=== PATIENT | male | born 1950 | race Caucasian/White ===

== ENCOUNTER 2022-03-06 01:44 | Day surgery (SDC) | payer BC, SELFPAY ==
[2022-03-03 14:46] VITALS: BMI 29.9
--- NOTE | 2022-03-06 08:30 | ECG_ITS ---
Measurements Intervals [place] Rate: 45 P: AL: 0 QRS: -25 QRSD: 81 T: 53 QT: 456 QTc: 398 Interpretive Statements ATRIAL FLUTTER WITH SLOW VENTRICULAR RESPONSE DELAYED PRECORDIAL R/S TRANSITION ABNORMAL ECG NO PREVIOUS ECG AVAILABLE FOR COMPARISON Electronically Signed On 03-06-2022 8:39:56 SPIRAL RUNNER by Armando Corea D.O.
[2022-03-06 08:40] VITALS: BP 152/55; PULSE 56; RESP 13; TEMP 36.9; O2SAT 100; BMI 29.9
[2022-03-06 09:15] LABS: Anion Gap 6 mmol/L (8-16); Blood Urea Nitrogen 25 mg/dL (9-20); Carbon Dioxide 26 mmol/L (22-30); Chloride 103 mmol/L (98-107); Estimated CRCL calculation 63 ml/min; Estimated Glomerular Filt Rate > 60; Glucose 102 mg/dL (65-110); Magnesium 1.9 mg/dL (1.6-2.3); Potassium 3.9 mmol/L (3.4-5.0); Sodium 135 mmol/L (137-145)
--- NOTE | 2022-03-06 10:00 | ECG_ITS ---
Measurements Intervals [place] Rate: 59 P: -18 SC: 214 QRS: -34 QRSD: 88 T: 39 QT: 429 QTc: 426 Interpretive Statements SINUS BRADYCARDIA WITH FIRST DEGREE AV BLOCK LEFT AXIS DEVIATION DELAYED PRECORDIAL R/S TRANSITION BORDERLINE ECG COMPARED TO ECG 03/06/2022 08:36:20 SINUS BRADYCARDIA NOW PRESENT FIRST DEGREE AV BLOCK NOW PRESENT LEFT-AXIS DEVIATION NOW PRESENT Electronically Signed On 03-06-2022 10:30:31 CONSUMER LOAN MANAGER by Armando Corea D.O.
--- NOTE | 2022-03-06 10:01 | WPDMODSED ---
Moderate Sedation Note-Pt Data Patient Data Diagnosis: Persistent atrial flutter chronicity unknown Previous mitral valve repair Present Complaint: No complaints this morning Procedure to be performed/Plan: DC cardioversion Allergies Allergy/AdvReac Type Severity Reaction Status Date / Time No Known Allergies Allergy Verified 03/03/22 15:19 Home Medications Medication Instructions Recorded Confirmed Type atorvastatin 40 mg tablet 40 mg PO DAILY 12/07/20 03/03/22 History kozhqtmflc-fyooaxeajicms-ljmpnqxr 1 cap PO Q4-6H PRN Headache 12/07/20 03/03/22 History 50 mg-300 mg-40 mg capsule (Fioricet) finasteride 5 mg tablet 5 mg PO DAILY 12/07/20 03/03/22 History furosemide 20 mg tablet 20 mg PO QAM 12/07/20 03/03/22 History galcanezumab-gnlm 120 mg/mL 120 mg subcut MONTHLY 12/07/20 03/03/22 History subcutaneous syringe (Emgality) pantoprazole 40 mg tablet,delayed 40 mg PO QAM 12/07/20 03/03/22 History release potassium chloride 10 mEq 10 meq PO DAILY 12/07/20 03/03/22 History capsule,extended release terazosin 10 mg capsule 10 mg PO DAILY 12/07/20 03/03/22 History rivaroxaban 20 mg tablet (Xarelto) 20 mg PO QHS 03/06/22 03/06/22 History Current Medications: Active Medications Sodium Chloride (Normal Saline Iv) 1,000 mls @ 30 mls/hr IV CONT .Q24H SPRING Sedation/Anesthesia: No previous sedation/anesthesia problems (including family history). [facility] Past Medical History Medical History (Updated 11/16/21 @ 08:59 by Rocio Lopez MA) History of broken nose History of pancreatitis History of stress test (~2007) Hyperlipidemia Hypertension Surgical History Surgical History History of carpal tunnel surgery (~1997) History of cervical spinal surgery (~1992) Discectomy History of hernia repair (~2007) History of laminectomy History of mitral valve repair (~2015) History of repair of rotator cuff (~2016) History of rotator cuff surgery History of sinus surgery (~1964) Cartilage Replaced Family History Family History Father Carcinoma of colon Mother Emphysema lung Social History Social History Smoking status: Former smoker Tobacco type: cigarettes Second hand tobacco smoke exposure: No Smoking end date: 02/19/79 Alcohol intake: current Drinks per week: 2 Alcohol use details: 1/week Substance use: former Substance use type: does not use Living arrangements: with family Spiritual care concerns: No Mod Sed Physical Exam Physical Exam Pre Procedural Exam: Normal: Appearance, Nose, Neck, Throat, Airway, Lungs, Heart Size, Neuro Exam and Extremities and Variation: Heart Rate (Bradycardia) and Heart Rhythm (Irregular) Hours since solid foods: 12 Hours since liquid intake: 12 Mallampati Classification: class II Internal Medicine - PN: Obj Da Vital Signs Vital Signs: Vital Signs - 24 hr 03/06/22 08:40 Temperature 36.9 C Pulse Rate 56 L Respiratory Rate 13 Blood Pressure 152/55 H Pulse Oximetry 100 Oxygen Delivery Room Air Meds/Results Medications: Active Medications Generic Name Dose Route Start Last Admin Trade Name Freq PRN Reason Stop Dose Admin Sodium Chloride 1,000 mls @ 30 mls/hr 03/06/22 08:30 Normal Saline Iv IV CONT .Q24H SPRING Labs 03/06/22 08:42 Labs: Laboratory Results - last 24 hr 03/06/22 08:42 Sodium 135 L Potassium 3.9 Chloride 103 Carbon Dioxide 26 Anion Gap 6 L BUN 25 H Creatinine 1.00 Estim Creat Clear Calc 63 Estimated GFR > 60 Glucose 102 Calcium 9.0 Magnesium 1.9 ASA Classification/Sedation ASA Classification/Sedation ASA Class: II Emergent: No Risks: Risks, benefits and alternatives explained and patient/family accepted plan for sedation. Patient re-evaluated immediately prior to sedati
[2022-03-06 10:08] VITALS: BP 152/73; PULSE 67; RESP 12; O2SAT 98
[2022-03-06 10:15] VITALS: BP 138/63; PULSE 56; RESP 13; O2SAT 97
--- NOTE | 2022-03-06 10:16 | WPDCARDPROC ---
Cardiac Cath Procedure Note Date of procedure:: 03/06/22 Performing physician:: Amrik Henriquez MD Indication:: Atrial flutter Brief clinical history:: This is a 71-year-old patient who has a history of mitral valve repair with annuloplasty ring previously. He has been found to be in persistent atrial flutter as an outpatient. He has been systemically anticoagulated and an attempt is now being made to restore sinus rhythm. With the patient being in atrial flutter his bradycardic despite no medication that would impair AV node conduction. Procedure Procedure performed:: DC cardioversion Sedation/Medication given:: Propofol total dosage of 80 mg Estimated blood loss:: None Procedure note:: Patient was brought to the cardiac catheterization lab holding area in the postabsorptive state where he was placed in the supine position with defibrillator patches in the AP position. Because of the bradycardia I elected to give him a mg of atropine intravenously prior to sedating him. He was then sedated with the propofol and cardioverted with 200 joules x1 shock restoring normal sinus rhythm/sinus bradycardia. Findings:: As above Conclusion:: Successful uncomplicated DC cardioversion terminating atrial flutter restoring sinus rhythm/sinus bradycardia with 200 joules x1 shock. Amrik Henriquez MD [facility]
[2022-03-06 10:30] VITALS: BP 130/66; PULSE 66; RESP 14; O2SAT 94
[2022-03-06 10:45] VITALS: BP 136/66; PULSE 66; RESP 15; O2SAT 95
[2022-03-06 11:00] VITALS: BP 135/54; PULSE 60; RESP 13; O2SAT 94
== END 2022-03-06 11:15 | disposition home or self-care (01) ==
PROVIDERS: PCP Internal Medicine; Visit Provider Specialist
PROC: 5A2204Z Restoration of Cardiac Rhythm, Single (ICD-10-PCS; principal; 2022-03-06 10:00)
DX: I48.92 Unspecified atrial flutter (principal); I10 Essential (primary) hypertension; E78.5 Hyperlipidemia, unspecified; Z79.01 Long term (current) use of anticoagulants; Z87.891 Personal history of nicotine dependence
CPT/HCPCS: 36415; 80048; 83735; 92960; J0461; J2704; J7030

== ENCOUNTER 2022-06-12 01:32 | Day surgery (SDC) | payer BC, SELFPAY ==
[2022-06-09 16:02] VITALS: BMI 32.0
[2022-06-12] VITALS (12 sets, daily range): BP systolic 146–180; BP diastolic 60–135; PULSE 32–70; RESP 11–24; TEMP 36–36.6; O2SAT 94–97; BMI 31.2
--- NOTE | ~2022-06-12 | XR_ITS ---
EXAMINATION: XR chest 2V DATE: 06/13/2022 11:07 INDICATION: Pacer placement. TECHNIQUE: Frontal and lateral views of the chest were obtained. COMPARISON: Chest single view 06/12/2022 FINDINGS: There are small pleural effusions. There are airspace opacities at left lung base. No pneum othorax. The heart size is normal. There are changes of mitral valve replacement. There is a left lorelei st wall pacer with leads in the right atrium and right ventricle. There is mild chronic anterior wedg ing of multiple vertebral bodies. IMPRESSION: 1. Small pleural effusions. 2. Worsened airspace opacities at left lung base, consistent with atelectasis versus pneumonia. Reviewed, dictated and finalized at location A. IMPRESSION: 1. Small pleural effusions. 2. Worsened airspace opacities at left lung base, consistent with atelectasis v ersus pneumonia.
--- NOTE | ~2022-06-12 | XR_ITS ---
EXAMINATION: XR chest 1V portable INDICATION: Pacemaker insertion TECHNIQUE: Portable AP chest at 1118 hours COMPARISON: None available FINDINGS: There is a mild diffuse interstitial pattern. Changes of cardiac valve repair are noted. Th e heart size is normal. A dual-lead cardiac pacemaker of the left chest wall ends with leads in expec jigna locations. No pleural effusion or pneumothorax. IMPRESSION: 1. Dual-lead pacemaker of the left chest wall without pneumothorax. 2. Mild pulmonary edema. Reviewed, dictated and finalized at location B.
[2022-06-12 07:34] LABS: Basophils Percent Auto 0.4 % (0.2-1.2); Eosinophils Absolute Auto 0.1 K/mm3 (0-0.3); Eosinophils Percent Auto 1.3 % (0-4.4); Hematocrit 38.3 % (42.0-52.0); Hemoglobin 12.7 g/dL (14.0-18.0); Immature Granulocyte Absolute 0.01 K/mm3 (0.00-0.031); Immature Granulocyte Percent A 0.2 % (0-0.5); Lymphocytes Absolute Auto 0.97 K/mm3 (0.9-3.2); Lymphocytes Percent Auto 17.4 % (18.3-44.2); Mean Corpuscular HGB Conc 33.2 g/dl (32-36); Mean Corpuscular Hemoglobin 32.2 pg (26-34); Mean Corpuscular Volume 97.2 fl (80-100); Mean Platelet Volume 9.8 fl (7.4-10.4); Monocytes Absolute Auto 0.6 K/mm3 (0.1-0.6); Neutrophils Absolute Auto 3.9 K/mm3 (1.3-6.7); Neutrophils Percent Auto 69.7 % (45.5-73.1); Platelet Count Result 147 k/mm3 (150-375); Red Blood Count 3.94 M/mm3 (4.6-6.20); Red Cell Distribution Width 12.7 % (11.5-14.5); White Blood Count 5.6 K/mm3 (4.5-10.0)
--- NOTE | 2022-06-12 07:34 | ECG_ITS ---
Measurements Intervals [place] Rate: 32 P: [place]: 0 QRS: -17 QRSD: 87 T: 40 QT: 521 QTc: 382 Interpretive Statements ATRIAL FLUTTER/TACHYCARDIA WITH SLOW VENTRICULAR RESPONSE ABNORMAL ECG Electronically Signed On 06-12-2022 11:56:10 CDT by Kali Doran M.D.
[2022-06-12 07:44] LABS: Anion Gap 7 mmol/L (8-16); Blood Urea Nitrogen 19 mg/dL (9-20); Calcium 8.9 mg/dL (8.4-10.2); Carbon Dioxide 26 mmol/L (22-30); Chloride 105 mmol/L (98-107); Estimated CRCL calculation 73 ml/min; Estimated Glomerular Filt Rate > 60; Glucose 105 mg/dL (65-110); Sodium 138 mmol/L (137-145)
[2022-06-12 07:54] LABS: INR 1.2; Prothrombin Time 14.4 Seconds (11.1-14.7)
[2022-06-12] MEDS: SODIUM CHLORIDE 0.9% IV 500 ML 100 ML IV CONT (08:30)
--- NOTE | 2022-06-12 08:50 | WPDMODSED ---
Moderate Sedation Note-Pt Data Patient Data Diagnosis: Symptomatic bradycardia with atrial flutter and slow ventricular response Present Complaint: shortness of breath Procedure to be performed/Plan: implantation of pacemaker Allergies Allergy/AdvReac Type Severity Reaction Status Date / Time No Known Allergies Allergy Verified 06/12/22 07:17 Home Medications Medication Instructions Recorded Confirmed Type atorvastatin 40 mg tablet 40 mg PO DAILY 12/07/20 06/09/22 History ozvzutdylt-yknrrsqaegfue-tnpvfafw 1 cap PO Q4-6H PRN Headache 12/07/20 06/09/22 History 50 mg-300 mg-40 mg capsule (Fioricet) finasteride 5 mg tablet 5 mg PO DAILY 12/07/20 06/09/22 History furosemide 20 mg tablet 20 mg PO QAM 12/07/20 06/09/22 History galcanezumab-gnlm 120 mg/mL 120 mg subcut MONTHLY 12/07/20 06/09/22 History subcutaneous syringe (Emgality) pantoprazole 40 mg tablet,delayed 40 mg PO QAM 12/07/20 06/09/22 History release potassium chloride 10 mEq 10 meq PO DAILY 12/07/20 06/09/22 History capsule,extended release terazosin 10 mg capsule 10 mg PO DAILY 12/07/20 06/09/22 History rivaroxaban 20 mg tablet (Xarelto) 20 mg PO QHS 03/06/22 06/09/22 History Current Medications: Active Medications Sodium Chloride (Normal Saline Iv) 500 mls @ 100 mls/hr IV CONT .Q5H SPRING Sedation/Anesthesia: No previous sedation/anesthesia problems (including family history). [facility] Past Medical History Medical History (Updated 11/16/21 @ 08:59 by Rocio Lopez MA) History of broken nose History of pancreatitis History of stress test (~2007) Hyperlipidemia Hypertension Surgical History Surgical History History of carpal tunnel surgery (~1997) History of cervical spinal surgery (~1992) Discectomy History of hernia repair (~2007) History of laminectomy History of mitral valve repair (~2015) History of repair of rotator cuff (~2016) History of rotator cuff surgery History of sinus surgery (~1964) Cartilage Replaced Family History Family History Father Carcinoma of colon Mother Emphysema lung Social History Social History Smoking status: Former smoker Tobacco type: cigarettes Second hand tobacco smoke exposure: Yes Smoking end date: 02/19/79 Alcohol intake: current Drinks per week: 2 Alcohol use details: 1-2 glasses wine/week Substance use: never Substance use type: does not use Living arrangements: with family Spiritual care concerns: No Mod Sed Physical Exam Physical Exam Pre Procedural Exam: Normal: Neck, Throat, Airway, Lungs, Heart Size and Neuro Exam and Variation: Appearance ( overweight white male no apparent distress), Heart Rate and Heart Rhythm ( atrial flutter with slow ventricular response) Hours since solid foods: 12 Hours since liquid intake: 12 Mallampati Classification: class II Internal Medicine - PN: Obj Da Vital Signs Vital Signs: Vital Signs - 24 hr 06/12/22 07:20 Temperature 36.6 C Pulse Rate 32 L Respiratory Rate 12 Blood Pressure 177/60 H Pulse Oximetry 96 Oxygen Delivery Room Air Meds/Results Medications: Active Medications Generic Name Dose Route Start Last Admin Trade Name Freq PRN Reason Stop Dose Admin Sodium Chloride 500 mls @ 100 mls/hr 06/12/22 08:30 Normal Saline Iv IV CONT .Q5H SPRING Labs 06/12/22 07:15 06/12/22 07:15 Labs: Laboratory Results - last 24 hr 06/12/22 06/12/22 06/12/22 07:15 07:15 07:24 WBC 5.6 RBC 3.94 L Hgb 12.7 L Hct 38.3 L MCV 97.2 MCH 32.2 MCHC 33.2 RDW 12.7 Plt Count 147 L MPV 9.8 Immature Gran % (Auto) 0.2 Neut % (Auto) 69.7 Lymph % (Auto) 17.4 L Garrett % (Auto) 11.0 H Eos % (Auto) 1.3 Baso % (Auto) 0.4 Lymph # (Auto) 0.97 Garrett # (Au
--- NOTE | 2022-06-12 10:56 | ECG_ITS ---
Measurements Intervals [place] Rate: 69 P: [place]: 0 QRS: -69 QRSD: 184 T: 92 QT: 441 QTc: 474 Interpretive Statements SINUS RHYTHM WITH eLECTRONIC VENTRICULAR PACEMAKER ATYPICAL ECG Electronically Signed On 06-12-2022 11:58:34 CDT by Kali Doran M.D.
--- NOTE | 2022-06-12 10:58 | WPDCARDPROC ---
Cardiac Cath Procedure Note Date of procedure:: 06/12/22 Performing physician:: Amrik Henriquez MD Indication:: atrial flutter with slow ventricular response/symptomatic bradycardia Brief clinical history:: this is a 71-year-old man with atrial flutter and AV node dysfunction. He is severely bradycardic because of AV node dysfunction and symptomatic with dyspnea. For treatment of this a permanent pacemaker implant has been scheduled for today. Procedure Procedure performed:: Implantation of permanent Biotronik dual-chamber pacing system Sedation/Medication given:: fentanyl 75 mg Versed 4 mg case start time 9:24 a.m. case end time 10:48 a.m. sedation provided by Ester López RN, trained observer Access site:: left subclavian Estimated blood loss:: 20 cc Procedure note:: patient was brought to the cardiac catheterization lab in the postabsorptive state the left anterior chest wall was prepped and draped in the usual sterile fashion. Anesthesia was provided inferior to the clavicle with 20 cc of% lidocaine infiltrated locally. Following this an incision was made below the clavicle from the midclavicular line to the deltopectoral groove. Sharp and blunt dissection was used to separate the subcutaneous tissue to the level of the prepectoral fascia. Electrocautery was used to provide cutaneous hemostasis. Blunt dissection was then made to create a pacemaker pocket along the fascial plane inferior to the incision. The pocket was packed with an antibiotic-soaked 4 x 4. Following this attention was turned to venous access. Using the 2 the 6 Georgian pacemaker SafeSheath kits the subclavian vein was punctured twice using the modified Seldinger technique in the 2 guidewires were placed under fluoroscopic visualization to the level of the right atrium. Following this the 6 Georgian SafeSheath 3 used to introduce the pacemaker leads into the venous circulation to the level of the right atria. Attention was then turned to the ventricular lead. The stylet was removed and a 3 cc syringe was fashion a J-tip stylet which was then used to steer the lead through the RV off the pulmonary artery position. the straight stylet was placed back in the lead was then placed right ventricular apical position. The fixation screw was deployed appropriate pacing and sensing performance was demonstrated. A 10 volt stimulation showed no evidence of extracardiac stimulation. Following this attention was turned to the atrial lead. A preformed atrial J stylet was placed into the lead it was placed into the right atrial appendage position the lead fixation screw was deployed and appropriate pacing and sensing performance was demonstrated once again a 10 volts stimulation showed no evidence of extracardiac stimulation. The retained sponge was then removed from the pocket and the leads were secured to the base of the pocket using 2 0 silk. The pocket was irrigated with Ancef infused saline. The pacemaker generator detailed below was connected to the leads in the entire assembly was placed into the newly created pocket which was then closed in layers using 3-0 Vicryl in an interrupted fashion for the subcutaneous tissue and 4-0 Vicryl in a running subcuticular fashion for the skin. under fluoroscopy then it was noted that the atrial lead had become dislodged and had dropped at down to the level of the tricuspid valve annulus. Obviously this was not an acceptable result. The pocket was then reopened using the 15 blade and the suture material was removed. The 2-0 silk ties were then cut that were retaining the atrial lead and the fixation screw was withdrawn. The lead was then withdrawn into the atrium the preformed atrial J stylet was then we placed this lead again was once again placed into the right atrial appendage position and the fixation screw was deployed. The entire lead was then rotated once in the clockwise direction. This appeared to provide very good
--- NOTE | 2022-06-12 12:10 | SUR.PHASEII ---
phase II completed @1206. Post PPM EKG and CXR taken. VSS. Will continue care in [facility]-4 in extended recovery until a med-tele bed is available
[2022-06-12] MEDS: HYDROcodone/acetaminophen (*CRX) 5-325 MG TABLET 1 TAB PO ×2 (12:59→20:22)
--- NOTE | 2022-06-12 14:14 | PC.NURSE ---
report called to [employer] surgical product sales consultant @4007. pt transferred to room 329 via hospital bed. Call light left within reach and oriented to new room. pt educated on bedrest and to call nurse or tech for assistance.
--- NOTE | 2022-06-12 14:20 | PC.NURSE ---
This patient, Skip Crowe, was admitted to 3 [facility] Surg Room 329-01. Patient/family oriented to hospital policies and general routines including ID bracelet, bed and alarms, visiting hours, pain management, procedures, bathroom and other care routines, personal items, smoking policy, room service/diet, and visiting hours. Report received from Kaylynn JENKINS. Information on how to activate the Rapid Response Team has been discussed. Patient/Family are encouraged to report perceived risks to care and to ask questions if they do not understand what they are told or what they should do.
[2022-06-12] MEDS: ACETAMINOPHEN/BUTALBITAL/CAFFEINE 325-50-40 MG TABLET (FIORICET) 1 TAB PO ×2 (16:31→22:01)
[2022-06-12] MEDS: ceFAZolin 1 GM/NS 50 ML 1 GM/50 ML BAG IVPB ×2 (16:37→23:37)
[2022-06-13] VITALS: BP 156/66; PULSE 67; PULSE 69; RESP 14; TEMP 36.6; O2SAT 96
[2022-06-13] MEDS: HYDROcodone/acetaminophen (*CRX) 5-325 MG TABLET 1 TAB PO ×2 (01:45→07:25)
[2022-06-13] MEDS: ACETAMINOPHEN/BUTALBITAL/CAFFEINE 325-50-40 MG TABLET (FIORICET) 1 TAB PO ×2 (02:39→07:24)
[2022-06-13 04:00] VITALS: BP 134/61; PULSE 69; RESP 14; TEMP 36.3; O2SAT 94
[2022-06-13 08:00] VITALS: BP 162/84; PULSE 69; PULSE 70; RESP 16; TEMP 36.2; O2SAT 96
--- NOTE | 2022-06-13 08:48 | PM.DS ---
DS: Admitting Diagnosis Discharge Date 06/13/2022 Admitting Diagnosis Sick sinus syndrome DS: Discharge Diagnosis Discharge Diagnosis (1) Sick sinus syndrome: Code(s): I49.5 - Sick sinus syndrome Status: Acute Assessment and Plan: S/p permanent pacemaker implantation on 06/12/22. No post procedural complications. Pacemaker precautions reviewed CXR with no pneumo Resume Xarelto 06/19/22 Outpatient follow up in one week DS: Summary Hospital Course Hospital Course: Admitted for observation on 06/12 following elective permanent pacemaker implantation. No post-procedural complications. He is feeling well this morning. Follow up chest Xray did not show any oneumothorax. Time Spent with Patient Time attestation: Total time spent providing and/or coordinating discharge services: Exam Const: General: comfortable, no acute distress, alert and awake Orientation/consciousness: patient oriented x3 HENMT: Head: normal to inspection Eyes: General: appearance normal, both eyes and all related structures Pupils: Equal, round and reactive pupils present Neck: Neck: normal visual inspection, supple and no JVD Carotids: normal carotid upstroke Resp: Effort & Inspection: normal respiratory effort Auscultation: clear to auscultation bilaterally Cardio: Rate: regular rate Rhythm: regular rhythm Heart sounds: S1 normal heart sound present, S2 normal heart sound present and no murmurs GI: Auscultation: normal bowel sounds Skin: General skin exam: normal color Other: L pectoral incision free from bleeding, hematoma, pain. Neuro: General: patient oriented x3 Cranial nerves: Yes Equal, round and reactive pupils present Extrem: General: normal to inspection Psych: Appearance: grossly normal Mental Status: mental status grossly normal Discharge Plan Discharge Patient Disposition: Home, Self-Care Discharge Instructions: [facility] [address] [place] [address] DISCHARGE INSTRUCTIONS - POST PACEMAKER Activity 1. No driving until you are seen in the office for your incision check. 2. No lifting, pushing or pulling more than 5 pounds with affected arm for 1 MONTH 3. No lifting affected arm above shoulder height for 1 MONTH 4. Wear immobilizer/sling only if you are unable to remember the above activity restrictions. Recommend that it be worn at night. 5. You may shower AFTER you are seen for incision check but no tub baths, swimming pool or hot tub for 1MONTH Wound Care 1. Do not attempt to remove the Aquacel dressing. Leave dressing undisturbed until incision check at the office visit. Keep dressing dry. 2. When you are able to shower AFTER you are seen for your incision check in the office do not rub or scrub the incision. Pat dry after shower. NO lotions, powders, creams or ointments are to be applied to the incision 3. A small amount of tenderness, puffiness and bruising around the site is normal. Call if any significant pain, drainage, swelling, or redness around the site 4. Woman: Wear a bra to support the breast tissue and avoid pulling on the incision. Pad the bra strap if necessary with soft smooth cloth. *For any other questions please call the office at [phone]. Office hours are 8AM 4:30PM Sunday through Sunday. Patient Instructions: Pacemaker (DC) Stand Alone Forms: General Discharge Instructions Follow-up/Referrals: Amrik Henriquez MD [Physician] - (Pacema
[2022-06-13 11:58] VITALS: BP 150/80; PULSE 69; RESP 20; TEMP 36.8; O2SAT 97
[2022-06-13 12:00] VITALS: PULSE 70
== END 2022-06-13 13:10 | disposition home or self-care (01) ==
LOC: ANHCATHLAB 10:11 → ANHCPC 13:40 → ANH3MEDSUR 06-13 09:11
PROVIDERS: PCP Internal Medicine; Visit Provider Specialist
PROC: 0JH606Z Insertion of Pacemaker, Dual Chamber into Chest Subcutaneous Tissue and Fascia, Open Approach (ICD-10-PCS; CPT 33208; principal; 2022-06-12 08:30)
DX: I49.5 Sick sinus syndrome (principal); I48.92 Unspecified atrial flutter; I10 Essential (primary) hypertension; E78.5 Hyperlipidemia, unspecified; Z79.01 Long term (current) use of anticoagulants; Z87.891 Personal history of nicotine dependence
CPT/HCPCS: 33208; 36415; 71045; 71046; 80048; 85025; 85610; 93005; A9270; C1779; C1785; J0690; J2250; J3010; J7040